=== PATIENT | female | born 1965 | race Caucasian/White ===

== ENCOUNTER 2016-08-10 16:49 | Inpatient (IN) | payer SELFPAY ==
[~2016-08-10] VITALS: Ht 165.1 cm; Wt 106.6 kg
[2016-08-10] MEDS ORDERED: MORPHINE SULFATE 2 MG/ML DISP.SYRIN. IV PRN ×3 (17:45→21:30)
[2016-08-10] MEDS ORDERED: ONDANSETRON PF 4 MG/2 ML VIAL. IV PRN ×3 (17:45→21:30)
[2016-08-10] MEDS ORDERED: MORPHINE SULFATE 4 MG/ML DISP.SYRIN. IV PRN (18:00)
[2016-08-10] MEDS: IV NORMAL SALINE 1000ML BAG 1,000 ML IV SCH (18:01)
[2016-08-10] MEDS: PIPERACILLIN/TAZOBACTAM 3.375 GM in IV NORMAL SALINE 50ML 50 ML IV SCH ×2 (19:03→23:53)
[2016-08-10] MEDS ORDERED: DESFLURANE > 120 MINUTES IH ONE (19:32)
[2016-08-10] MEDS ORDERED: GLYCOPYRROLATE 1 MG/5 ML VIAL. ONE (19:33)
[2016-08-10] MEDS ORDERED: MIDAZOLAM HCL 2 MG/2 ML VIAL. ONE (19:33)
[2016-08-10] MEDS ORDERED: PROPOFOL 20 ML IV ONE (19:33)
[2016-08-10] MEDS ORDERED: ROCURONIUM 50 MG/5 ML VIAL. ONE (19:33)
[2016-08-10] MEDS ORDERED: FENTANYL PF 100 MCG/2 ML VIAL. ONE (19:33)
[2016-08-10] MEDS ORDERED: SUCCINYLCHOLINE 200 MG/10 ML VIAL. ONE (19:33)
[2016-08-10] MEDS ORDERED: NEOSTIGMINE METHYLSULFATE 5 MG/5 ML SYRINGE. ONE (19:33)
[2016-08-10] MEDS ORDERED: ONDANSETRON PF 4 MG/2 ML VIAL. ONE (19:34)
[2016-08-10] MEDS ORDERED: LIDOCAINE 2% 100 MG/5 ML DISP.SYRIN. ONE (19:34)
[2016-08-10] MEDS ORDERED: KETOROLAC 30 MG/ML SYRINGE FOR OR. INJ ONE (19:34)
[2016-08-10] MEDS ORDERED: DEXAMETHASONE SOD PHOS 20 MG/5 ML VIAL. ONE (19:34)
[2016-08-10] MEDS ORDERED: IV RINGERS,LACTATED 1000ML 1,000 ML IV SCH (19:57)
[2016-08-10] MEDS ORDERED: LIDOCAINE 1% 1 ML SYRINGE. ID PRN (20:00)
[2016-08-10] MEDS ORDERED: PROCHLORPERAZINE 10 MG/2 ML VIAL. IV PRN (20:00)
[2016-08-10] MEDS ORDERED: FENTANYL PF 100 MCG/2 ML VIAL. IV PRN (20:00)
[2016-08-10] MEDS ORDERED: HYDROMORPHONE 2 MG/ML VIAL. IV PRN (20:00)
[2016-08-10] MEDS ORDERED: BUPIVACAINE-EPI 0.25%-1:200000 MPF 30 ML VIAL. ONE (20:05)
--- NOTE | 2016-08-10 20:27 | PDOC2 ---
CONSULT Date of Consult Date of Consult DATE: 08/10/16 TIME: 20:22 Reason for Consult Reason for Consult: Abdominal pain Referring Physician Referring Physician: Zack Identification/Chief Complaint Chief Complaint Abdominal pain Source Source: Patient History of Present Illness Reason for Visit: 51 yo fe,gennaro with 2 day history of right lower back pain then today became severe right lower quadrant abdominal pain with nausea. No fevers Past Medical History Cardiovascular: No pertinent hx Pulmonary: No pertinent hx GI: No pertinent hx Heme/Onc: No pertinent hx Hepatobiliary: No pertinent hx Psych: No pertinent hx Musculoskeletal: low back pain Rheumatologic: No pertinent hx Infectious disease: No pertinent hx ENT: No pertinent hx Renal/: Other (uterine fibroids) Endocrine: No pertinent hx Dermatology: No pertinent hx Past Surgical History Past Surgical History: Other (fibroid ablation, cholecystectomy) Family History Family History: No Significant Social History Social History: Parent No ALCOHOL: none Drugs: None Lives: with Family Current Medications Current Medications Current Medications Morphine Sulfate 2 mg PRN Q2HR PRN IV PAIN Last administered on 08/10/16 18:02 ; Start 08/10/16 at 17:45 Morphine Sulfate 4 mg 4 mg PRN Q2HR PRN IV PAIN; Start 08/10/16 at 17:45; Stop 08/10/16 at 17:49; Status DC Sodium Chloride (Iv Sodium Chloride 0.9% 1000ml Bag) 1,000 ml @ 75 mls/hr [id number] IV Last administered on 08/10/16 18:01; Start 08/10/16 at 17:45 Ondansetron HCl (Zofran) 4 mg PRN Q6HRS PRN IV NAUSEA/VOMITING Last administered on 08/10/16 19:30; Start 08/10/16 at 17:45 Morphine Sulfate 4 mg 4 mg PRN Q2HR PRN IV PAIN; Start 08/10/16 at 18:00 Piperacillin Sod/ Tazobactam Sod/ Sodium Chloride (Zosyn/Iv Sodium Chloride 0.9 % 50ml) 50 ml @ 100 mls/hr Q6HRS IV Last administered on 08/10/16 19:03; Start 08/10/16 at 18:15 Desflurane (Suprane) 90 ml STK-MED ONCE IH ; Start 08/10/16 at 19:32; Stop 08/10 at 19:33; Status DC Midazolam HCl (Versed) 2 mg STK-MED ONCE .ROUTE ; Start 08/10/16 at 19:33; Stop 08/10/16 at 19:34; Status DC Fentanyl Citrate (Fentanyl 2ml Vial) 100 mcg STK-MED ONCE .ROUTE ; Start at 19:33; Stop 08/10/16 at 19:34; Status DC Succinylcholine Chloride (Anectine) 200 mg STK-MED ONCE .ROUTE ; Start 08/10/16 at 19:33; Stop 08/10/16 at 19:34; Status DC Glycopyrrolate (Robinul) 1 mg STK-MED ONCE .ROUTE ; Start 08/10/16 at 19:33; Stop 08/10/16 at 19:34; Status DC Neostigmine Methylsulfate 5 mg STK-MED ONCE .ROUTE ; Start 08/10/16 at 19:33; Stop 08/10/16 at 19:34; Status DC Rocuronium [place] 50 mg 50 mg STK-MED ONCE .ROUTE ; Start 08/10/16 at 19:33; Stop 08/10/16 at 19:34; Status DC Propofol (Diprivan) 20 ml @ As Directed STK-MED ONCE IV ; Start 08/10/16 at 19: 33; Stop 08/10/16 at 19:34; Status DC Dexamethasone Sodium Phosphate (Decadron) 20 mg STK-MED ONCE .ROUTE ; Start 05/16 at 19:34; Stop 08/10/16 at 19:35; Status DC Ketorolac Tromethamine (Toradol For Or Only) 30 mg STK-MED ONCE INJ ; Start 05/16 at 19:34; Stop 08/10/16 at 19:35; Status DC Ondansetron HCl (Zofran) 4 mg STK-MED ONCE .ROUTE ; Start 08/10/16 at 19:34; Stop 08/10/16 at 19:35; Status DC Lidocaine HCl 100 mg STK-MED ONCE .ROUTE ; Start 08/10/16 at 19:34; Stop at 19:35; Status DC Ondansetron HCl (Zofran) 4 mg PRN Q6HRS PRN IV Nausea; Start 08/10/16 at 20:00 ; Stop 08/11/16 at 04:00 Fentanyl Citrate (Fentanyl 2ml Vial) 25 mcg PRN Q5MIN PRN IV MILD PAIN; Start 08/10/16 at 20:00; Stop 08/11/16 at 04:00 Fentanyl Citrate (Fentanyl 2ml Vial) 50 mcg PRN Q5MIN PRN IV MODERATE PAIN; Start 08/10/16 at 20:00; Stop 08/11/16 at 04:00 Morphine Sulfate 1 mg 1 mg PRN Q10MIN PRN IV SEVERE PAIN; Start 08/10/16 at 20: 00; Stop 08/11/16 at 04:00 Lactated Ringer's (Iv Lactated Ringers) 1,000 ml @ 30 mls/hr Q24H IV ; Start at 19:57; Stop 08/11/16 at 07:56 Lidocaine HCl 2 ml 1X PRN PRN ID IV START; Start 08/10/16 at 20:00; Stop at 19:59 Hydromorphone HCl (Dilaudid) 0.5 mg PRN Q10MIN PRN IV SEV PAIN,Second choice; Start 08/10/16 at 20:00; Stop 08/11/16 at 19:59 Prochlorperazine Edisylate (Compazine) 5 mg PACU PRN PRN IV NAUSEA; Start 08/10 at 20:00; Stop 08/11/16 at 04:00 Bupivacaine HCl/ Epinephrine Bitart (Sensorcaine-Epi 0.25%-1:304122 Mpf) 30 ml STK-MED ONCE .ROUTE ; Start 08/10/16 at 20:05; Stop 08/10/16 at 20:06; Status DC Active Scripts Active Reported No Known Medications Prior To Admisstion (Info) Each 1 Each Allergies Allergies: Coded Allergies: Quinolones (Verified Allergy, Intermediate, 08/10/16) Sulfa (Sulfonamide Antibiotics) (Verified Allergy, Intermediate, 08/10/16) ofloxacin (Verified Allergy, Intermediate, 08/10/16) ROS Gastrointestinal: Yes Abdominal Pain, Yes Nausea Physical Exam General: Alert, Oriented X3, Cooperative, mild distress HEENT: Atraumatic Lungs: Clear to auscultation, Normal air movement Heart: Regular rate, No murmurs Abdomen: Normal bowel sounds, Soft, Other (TTP RLQ) Extremities: No edema Skin: No significant lesion Neuro: Normal speech Psych/Mental Status: Mental status NL Vitals VITALS Vital Signs Date Time Temp Pulse Resp B/P Pulse Ox O2 Delivery O2 Flow Rate FiO2 08/10/16 20:01 Room Air 08/10/16 19:00 18 Labs Labs WBC 13,[address] shows RLQ inflammation evidence of acute appendicitis without abscess Assessment/Plan Assessment/Plan Acute appendicitis Plan L/S Appendectomy PEARL WILLIAM MD Aug 10, 2016 20:27
[2016-08-10] MEDS ORDERED: PHENYLEPHRINE in 0.9% NACL PF 1 MG/10 ML DISP.SYRIN. IV ONE (20:42)
--- NOTE | 2016-08-10 21:17 | PDOC ---
BRIEF OPERATIVE NOTE Date: Aug 10, 2016 Pre-Op Diagnosis Acute appendicitis Post-Op Diagnosis Same Procedure Performed L/S Appendectomy Surgeon Kenton Anesthesia Type: General Blood Loss 10ml Specimens Obtained Appendectomy Findings As above Complications None PEARL WILLIAM MD Aug 10, 2016 21:17
[2016-08-10] MEDS: IV DEXTROSE 5%-LACT RINGERS 1,000 ML IV SCH (21:30)
[2016-08-10] MEDS ORDERED: 0.9 % SODIUM CHLORIDE 10 ML DISP.SYRIN. IV PRN (21:30)
[2016-08-10] MEDS ORDERED: OXYCODONE/APAP 5/325 TABLET. PO PRN (21:30)
[2016-08-10] MEDS: FENTANYL PF 100 MCG/2 ML VIAL. IV PRN ×2 (21:32→21:37)
[2016-08-10] MEDS: MORPHINE SULFATE 2 MG/ML DISP.SYRIN. IV PRN ×2 (21:42→21:52)
[2016-08-10] MEDS: DIPHENHYDRAMINE HCL 25 MG CAPSULE PO PRN ×2 (22:21→23:53)
[2016-08-10] MEDS: OXYCODONE/APAP 5/325 TABLET. PO PRN (22:22)
[2016-08-10 22:24] VITALS: BP 138/77
[2016-08-10 22:30] VITALS: BP 139/60
[2016-08-10 22:45] VITALS: BP 143/65
[2016-08-10 23:00] VITALS: BP 144/66
--- NOTE | 2016-08-10 23:12 | HP ---
ADMIT DATE: 08/10/2016 CHIEF COMPLAINT: Abdominal pain. HISTORY OF PRESENT ILLNESS: The patient is a pleasant middle-aged female who presented to the ER at [facility] with abdominal pain. She has now been transferred to our facility for consultation with General Surgery. She is going to surgery [facility] for laparoscopic appendectomy. PAST MEDICAL HISTORY: None. ALLERGIES: QUINOLONES, SULFA, AND OFLOXACIN. FAMILY HISTORY: Noncontributory. SOCIAL HISTORY: She does not drink, smoke, or take drugs. MEDICATIONS: Reviewed, please refer to the MRAD. REVIEW OF SYSTEMS: GENERAL: No history of weight change, weakness or fevers. SKIN: No bruising, hair changes or rashes. EYES: No blurred, double or loss of vision. NOSE AND THROAT: No history of nosebleeds, hoarseness or sore throat. HEART: No history of palpitations, chest pain or shortness of breath on exertion. LUNGS: Denies cough, hemoptysis, wheezing or shortness of breath. GASTROINTESTINAL: Complains of abdominal pain. GENITOURINARY: No history of frequency, urgency, hesitancy or nocturia. NEUROLOGIC: Denies history of numbness, tingling, tremor or weakness. PSYCHIATRIC: No history of panic, anxiety or depression. ENDOCRINE: No history of heat or cold intolerance, polyuria or polydipsia. EXTREMITIES: Denies muscle weakness, joint pain, pain on walking or stiffness. PHYSICAL EXAMINATION: VITAL SIGNS: Temperature afebrile, pulse 74, respirations 18, blood pressure 113/90. GENERAL: She is alert, cooperative. Her family is present. HEART: Normal S1, S2. LUNGS: Clear. ABDOMEN: Soft. Decreased bowel sounds, tender in [place] point. ENDOCRINE: No thyromegaly. LYMPHATICS: No cervical nodes. HEMATOPOIETIC: No bruising. LABORATORY DATA: Pending. ASSESSMENT AND PLAN: Acute appendicitis. The patient has been admitted, was started on IV antibiotics, IV fluids, p.r.n. narcotics. Consult General Surgery. She is going to surgery [facility]. PO JARVIS DO DR: NUHA/khushboo JOB#: [id number] / [id number]
[2016-08-10 23:30] VITALS: BP 145/70
[2016-08-10] MEDS: KETOROLAC 15 MG/ML VIAL. IV SCH (23:53)
[2016-08-11] VITALS (9 sets, daily range): BP systolic 113–152; BP diastolic 64–84
--- NOTE | 2016-08-11 01:54 | OP ---
DATE OF SURGERY: 08/10/2016 PREOPERATIVE DIAGNOSIS: Acute appendicitis. POSTOPERATIVE DIAGNOSIS: Acute appendicitis. PROCEDURE: Laparoscopic appendectomy. SURGEON: Sincere William MD INDICATIONS: The patient is a 51-year-old female was admitted to the hospital with right lower quadrant abdominal pain for the last 24 hours. Two days prior, she has been having right lower back pain. She was noticed to have a mild leukocytosis, nausea and a CT scan showing signs consistent with acute appendicitis, no abscess or free fluid. PROCEDURE: Laparoscopic appendectomy was explained to the patient in detail. Risks, benefits were also discussed including bleeding, infection, injury to intra-abdominal contents, possibility of sustaining further open operations. Alternatives of this procedure were also discussed with the patient who seemed to understand and gave verbal and written consent to have the procedure performed. DESCRIPTION OF PROCEDURE: The patient was taken to the operating room and placed in the supine position, general anesthesia was initiated. Once the patient was asleep and intubated, her abdomen was prepped and draped in usual sterile fashion using ChloraPrep. An area just above the umbilicus injected 0.25% Marcaine with epinephrine. Incision was made with an 11 blade scalpel and a Veress needle was placed within the abdomen. Pneumoperitoneum was achieved. Once this was complete, a 12 mm port was placed and a 5 mm camera was placed within the abdomen. Abdomen was inspected. No other abnormalities were noted. It was noted there was some inflammation in the right lower quadrant next to the cecum. At this point, two 5 mm ports were then placed, one in the right upper abdomen and one low in the midline pelvis under direct visualization. The camera was moved to the pelvic port. This allowed access to the cecum. The base of the appendix was visualized. The appendix was retrocecal and densely adherent to some omentum at the tip. After being able to propagate a window at the base of the appendix, an Endo-CYNDI stapler was used to staple and transect the base of the appendix. Dissection was carried down trying to free the appendix up from its adherent tissues. Once this was completed enough to see the mesoappendix clearly, an Endo-CYNDI was used to staple and transect the mesoappendix freeing up the appendix to be placed in EndoCatch bag and removed from the umbilicus. The right lower quadrant and pelvis were irrigated and suctioned dry. Hemostasis seemed to be appropriate and the pneumoperitoneum was reduced. All ports were removed. Fascial defect of the umbilicus closed with [id number] 0 Vicryl suture and the skin was reapproximated at all port sites with 4-0 subcuticular Monocryl. Mastisol, Steri-Strips, 4 x 4's and Medipore tape were applied as dressings. The patient was awakened, extubated in the operating room, taken to recovery in stable condition. All sponge, instrument counts listed as correct. Estimated blood loss 10 mL. SINCERE WILLIAM MD DR: MURRAY/khushboo JOB#: [id number] / [id number]
[2016-08-11] MEDS: KETOROLAC 15 MG/ML VIAL. IV SCH ×3 (06:00→18:38)
[2016-08-11] MEDS: PIPERACILLIN/TAZOBACTAM 3.375 GM in IV NORMAL SALINE 50ML 50 ML IV SCH ×3 (06:13→18:38)
[2016-08-11] MEDS: DIPHENHYDRAMINE HCL 25 MG CAPSULE PO PRN ×2 (06:15→21:44)
[2016-08-11] MEDS: IV NORMAL SALINE 1000ML BAG 1,000 ML IV SCH ×2 (07:05→19:40)
[2016-08-11 09:17] LABS: BASO # 0.1 x10^3/uL (0.0-0.2); BASO % 0 % (0-3); EOS % 0 % (0-3); HEMATOCRIT 38.1 % (36.0-47.0); HEMOGLOBIN 12.4 g/dL (12.0-15.5); LYMPH # 1.5 x10^3/uL (1.0-4.8); LYMPH % 10 % (24-48); MEAN CORPUSCULAR HEMOGLOBIN 28 pg (25-35); MEAN CORPUSCULAR HGB CONC 33 g/dL (31-37); MEAN CORPUSCULAR VOLUME 84 fL (79-100); MONO % 4 % (0-9); NEUT % 86 % (31-73); PLATELET COUNT 278 x10^3/uL (140-400); RED BLOOD COUNT 4.52 x10^6/uL (3.50-5.40); RED CELL DISTRIBUTION WIDTH 14.7 % (11.5-14.5); WHITE BLOOD COUNT 15.2 x10^3/uL (4.0-11.0)
--- NOTE | 2016-08-11 09:41 | PDOC ---
SURGICAL PROGRESS NOTE Subjective Doing well, tolerating diet. Vital Signs Vital Signs Date Time Temp Pulse Resp B/P Pulse Ox O2 Delivery O2 Flow Rate FiO2 08/11/16 07:20 Room Air 08/11/16 07:00 97.9 81 20 126/70 93 97.9 08/11/16 02:00 2.0 I&O Intake and Output 08/11/16 07:00 Intake Total 520 ml Output Total 300 ml Balance 220 ml Intake Oral 220 ml IV Total 300 ml Output Urine Total 300 ml PATIENT HAS A GREER: No General: Alert, Oriented X3, Cooperative, mild distress Abdomen: Normal bowel sounds, Soft, Other (Mild inscional tenderness) Labs Laboratory Tests Test 08/11/16 08:50 White Blood Count 15.2x10^3/uL (4.0-11.0) Red Blood Count 4.52x10^6/uL (3.50-5.40) Hemoglobin 12.4g/dL (12.0-15.5) Hematocrit 38.1% (36.0-47.0) Mean Corpuscular Volume 84fL (79-100) Mean Corpuscular Hemoglobin 28pg (25-35) Mean Corpuscular Hemoglobin Concent 33g/dL (31-37) Red Cell Distribution Width 14.7% (11.5-14.5) Platelet Count 278x10^3/uL (140-400) Neutrophils (%) (Auto) 86% (31-73) Lymphocytes (%) (Auto) 10% (24-48) Monocytes (%) (Auto) 4% (0-9) Eosinophils (%) (Auto) 0% (0-3) Basophils (%) (Auto) 0% (0-3) Neutrophils # (Auto) 13.0x10^3uL (1.8-7.7) Lymphocytes # (Auto) 1.5x10^3/uL (1.0-4.8) Monocytes # (Auto) 0.6x10^3/uL (0.0-1.1) Eosinophils # (Auto) 0.0x10^3/uL (0.0-0.7) Basophils # (Auto) 0.1x10^3/uL (0.0-0.2) Laboratory Tests Test 08/11/16 08:50 White Blood Count 15.2x10^3/uL (4.0-11.0) Red Blood Count 4.52x10^6/uL (3.50-5.40) Hemoglobin 12.4g/dL (12.0-15.5) Hematocrit 38.1% (36.0-47.0) Mean Corpuscular Volume 84fL (79-100) Mean Corpuscular Hemoglobin 28pg (25-35) Mean Corpuscular Hemoglobin Concent 33g/dL (31-37) Red Cell Distribution Width 14.7% (11.5-14.5) Platelet Count 278x10^3/uL (140-400) Neutrophils (%) (Auto) 86% (31-73) Lymphocytes (%) (Auto) 10% (24-48) Monocytes (%) (Auto) 4% (0-9) Eosinophils (%) (Auto) 0% (0-3) Basophils (%) (Auto) 0% (0-3) Neutrophils # (Auto) 13.0x10^3uL (1.8-7.7) Lymphocytes # (Auto) 1.5x10^3/uL (1.0-4.8) Monocytes # (Auto) 0.6x10^3/uL (0.0-1.1) Eosinophils # (Auto) 0.0x10^3/uL (0.0-0.7) Basophils # (Auto) 0.1x10^3/uL (0.0-0.2) Problem List Problems Medical Problems: (1) Acute appendicitis Status: Acute Assessment/Plan s/p l/s appy, doing well WBC 15,000 Continue IV abx today, hope to send home in AM Patient may shower Problems: PEARL WILLIAM MD Aug 11, 2016 09:41
[2016-08-11 10:42] LABS: PLT ESTIMATE ADEQUATE (ADEQUATE)
[2016-08-11] MEDS: IV DEXTROSE 5%-LACT RINGERS 1,000 ML IV SCH (10:50)
--- NOTE | 2016-08-11 12:10 | PDOC ---
PROGRESS NOTES Chief Complaint Chief Complaint cc:abdominal pain A/P L/S Appendectomy elevated WBC plan abx monitor wbc pain control GS following labs reviewed, Vitals Vitals Vital Signs Date Time Temp Pulse Resp B/P Pulse Ox O2 Delivery O2 Flow Rate FiO2 08/11/16 11:00 97.4 91 20 129/66 93 Room Air 97.4 08/11/16 02:00 2.0 Physical Exam General: Alert, Oriented X3, Cooperative, mild distress Heart: Regular rate, Normal S1, Normal S2, No murmurs Lungs: Clear Abdomen: Normal bowel sounds, Soft, Other (Mild inscional tenderness) Extremities: No edema Skin: No significant lesion Labs LABS Laboratory Tests Test 08/11/16 08:50 White Blood Count 15.2x10^3/uL (4.0-11.0) Red Blood Count 4.52x10^6/uL (3.50-5.40) Hemoglobin 12.4g/dL (12.0-15.5) Hematocrit 38.1% (36.0-47.0) Mean Corpuscular Volume 84fL (79-100) Mean Corpuscular Hemoglobin 28pg (25-35) Mean Corpuscular Hemoglobin Concent 33g/dL (31-37) Red Cell Distribution Width 14.7% (11.5-14.5) Platelet Count 278x10^3/uL (140-400) Neutrophils (%) (Auto) 86% (31-73) Lymphocytes (%) (Auto) 10% (24-48) Monocytes (%) (Auto) 4% (0-9) Eosinophils (%) (Auto) 0% (0-3) Basophils (%) (Auto) 0% (0-3) Neutrophils # (Auto) 13.0x10^3uL (1.8-7.7) Lymphocytes # (Auto) 1.5x10^3/uL (1.0-4.8) Monocytes # (Auto) 0.6x10^3/uL (0.0-1.1) Eosinophils # (Auto) 0.0x10^3/uL (0.0-0.7) Basophils # (Auto) 0.1x10^3/uL (0.0-0.2) Segmented Neutrophils % 84% (35-66) Band Neutrophils % 2% (0-9) Lymphocytes % 14% (24-48) Platelet Estimate Adequate (ADEQUATE) Assessment and Plan Assessmemt and Plan Problems Medical Problems: (1) Acute appendicitis Status: Acute Problems: Comment Review of Relevant I have reviewed the following items amanda (where applicable) has been applied. Labs Laboratory Tests Test 08/11/16 08:50 White Blood Count 15.2x10^3/uL (4.0-11.0) Red Blood Count 4.52x10^6/uL (3.50-5.40) Hemoglobin 12.4g/dL (12.0-15.5) Hematocrit 38.1% (36.0-47.0) Mean Corpuscular Volume 84fL (79-100) Mean Corpuscular Hemoglobin 28pg (25-35) Mean Corpuscular Hemoglobin Concent 33g/dL (31-37) Red Cell Distribution Width 14.7% (11.5-14.5) Platelet Count 278x10^3/uL (140-400) Neutrophils (%) (Auto) 86% (31-73) Lymphocytes (%) (Auto) 10% (24-48) Monocytes (%) (Auto) 4% (0-9) Eosinophils (%) (Auto) 0% (0-3) Basophils (%) (Auto) 0% (0-3) Neutrophils # (Auto) 13.0x10^3uL (1.8-7.7) Lymphocytes # (Auto) 1.5x10^3/uL (1.0-4.8) Monocytes # (Auto) 0.6x10^3/uL (0.0-1.1) Eosinophils # (Auto) 0.0x10^3/uL (0.0-0.7) Basophils # (Auto) 0.1x10^3/uL (0.0-0.2) Segmented Neutrophils % 84% (35-66) Band Neutrophils % 2% (0-9) Lymphocytes % 14% (24-48) Platelet Estimate Adequate (ADEQUATE) Laboratory Tests Test 08/11/16 08:50 White Blood Count 15.2x10^3/uL (4.0-11.0) Red Blood Count 4.52x10^6/uL (3.50-5.40) Hemoglobin 12.4g/dL (12.0-15.5) Hematocrit 38.1% (36.0-47.0) Mean Corpuscular Volume 84fL (79-100) Mean Corpuscular Hemoglobin 28pg (25-35) Mean Corpuscular Hemoglobin Concent 33g/dL (31-37) Red Cell Distribution Width 14.7% (11.5-14.5) Platelet Count 278x10^3/uL (140-400) Neutrophils (%) (Auto) 86% (31-73) Lymphocytes (%) (Auto) 10% (24-48) Monocytes (%) (Auto) 4% (0-9) Eosinophils (%) (Auto) 0% (0-3) Basophils (%) (Auto) 0% (0-3) Neutrophils # (Auto) 13.0x10^3uL (1.8-7.7) Lymphocytes # (Auto) 1.5x10^3/uL (1.0-4.8) Monocytes # (Auto) 0.6x10^3/uL (0.0-1.1) Eosinophils # (Auto) 0.0x10^3/uL (0.0-0.7) Basophils # (Auto) 0.1x10^3/uL (0.0-0.2) Segmented Neutrophils % 84% (35-66) Band Neutrophils % 2% (0-9) Lymphocytes % 14% (24-48) Platelet Estimate Adequate (ADEQUATE) Medications Current Medications Morphine Sulfate 2 mg PRN Q2HR PRN IV PAIN Last administered on 08/10/16 18:02 ; Start 08/10/16 at 17:45 Morphine Sulfate 4 mg 4 mg PRN Q2HR PRN IV PAIN; Start 08/10/16 at 17:45; Stop 08/10/16 at 17:49; Status DC Sodium Chloride (Iv Sodium Chloride 0.9% 1000ml Bag) 1,000 ml @ 75 mls/hr [id number] IV Last administered on 08/10/16 18:01; Start 08/10/16 at 17:45 Ondansetron HCl (Zofran) 4 mg PRN Q6HRS PRN IV NAUSEA/VOMITING; Start 08/10/16 at 17:45 Morphine Sulfate 4 mg 4 mg PRN Q2HR PRN IV PAIN; Start 08/10/16 at 18:00 Piperacillin Sod/ Tazobactam Sod/ Sodium Chloride (Zosyn/Iv Sodium Chloride 0.9 % 50ml) 50 ml @ 100 mls/hr Q6HRS IV Last administered on 08/11/16t 11:29; Start 08/10/16 at 18:15 Desflurane (Suprane) 90 ml STK-MED ONCE IH ; Start 08/10/16 at 19:32; Stop 08/10 at 19:33; Status DC Midazolam HCl (Versed) 2 mg STK-MED ONCE .ROUTE ; Start 08/10/16 at 19:33; Stop 08/10/16 at 19:34; Status DC Fentanyl Citrate (Fentanyl 2ml Vial) 100 mcg STK-MED ONCE .ROUTE ; Start at 19:33; Stop 08/10/16 at 19:34; Status DC Succinylcholine Chloride (Anectine) 200 mg STK-MED ONCE .ROUTE ; Start 08/10/16 at 19:33; Stop 08/10/16 at 19:34; Status DC Glycopyrrolate (Robinul) 1 mg STK-MED ONCE .ROUTE ; Start 08/10/16 at 19:33; Stop 08/10/16 at 19:34; Status DC Neostigmine Methylsulfate 5 mg STK-MED ONCE .ROUTE ; Start 08/10/16 at 19:33; Stop 08/10/16 at 19:34; Status DC Rocuronium [place] 50 mg 50 mg STK-MED ONCE .ROUTE ; Start 08/10/16 at 19:33; Stop 08/10/16 at 19:34; Status DC Propofol (Diprivan) 20 ml @ As Directed STK-MED ONCE IV ; Start 08/10/16 at 19: 33; Stop 08/10/16 at 19:34; Status DC Dexamethasone Sodium Phosphate (Decadron) 20 mg STK-MED ONCE .ROUTE ; Start 05/16 at 19:34; Stop 08/10/16 at 19:35; Status DC Ketorolac Tromethamine (Toradol For Or Only) 30 mg STK-MED ONCE INJ ; Start 05/16 at 19:34; Stop 08/10/16 at 19:35; Status DC Ondansetron HCl (Zofran) 4 mg STK-MED ONCE .ROUTE ; Start 08/10/16 at 19:34; Stop 08/10/16 at 19:35; Status DC Lidocaine HCl 100 mg STK-MED ONCE .ROUTE ; Start 08/10/16 at 19:34; Stop at 19:35; Status DC Ondansetron HCl (Zofran) 4 mg PRN Q6HRS PRN IV Nausea; Start 08/10/16 at 20:00 ; Stop 08/11/16 at 04:00; Status DC Fentanyl Citrate (Fentanyl 2ml Vial) 25 mcg PRN Q5MIN PRN IV MILD PAIN; Start 08/10/16 at 20:00; Stop 08/11/16 at 04:00; Status DC Fentanyl Citrate (Fentanyl 2ml Vial) 50 mcg PRN Q5MIN PRN IV MODERATE PAIN Last administered on 08/10/16 21:37; Start 08/10/16 at 20:00; Stop 08/11/16 at 04:00; Status DC Morphine Sulfate 1 mg 1 mg PRN Q10MIN PRN IV SEVERE PAIN Last administered on 21:52; Start 08/10/16 at 20:00; Stop 08/11/16 at 04:00; Status DC Lactated Ringer's (Iv Lactated Ringers) 1,000 ml @ 30 mls/hr Q24H IV ; Start at 19:57; Stop 08/11/16 at 07:56; Status DC Lidocaine HCl 2 ml 1X PRN PRN ID IV START; Start 08/10/16 at 20:00; Stop at 19:59 Hydromorphone HCl (Dilaudid) 0.5 mg PRN Q10MIN PRN IV SEV PAIN,Second choice; Start 08/10/16 at 20:00; Stop 08/11/16 at 19:59 Prochlorperazine Edisylate (Compazine) 5 mg PACU PRN PRN IV NAUSEA; Start 08/10 at 20:00; Stop 08/11/16 at 04:00; Status DC Bupivacaine HCl/ Epinephrine Bitart (Sensorcaine-Epi 0.25%-1:118187 Mpf) 30 ml STK-MED ONCE .ROUTE Last administered on 08/10/16 20:36; Start 08/10/16 at 20: 05; Stop 08/10/16 at 20:06; Status DC Phenylephrine HCl 1 mg STK-MED ONCE IV ; Start 08/10/16 at 20:42; Stop 08/10/16 at 20:43; Status DC Sodium Chloride (Normal Saline Flush) 3 ml QSHIFT PRN IV AFTER MEDS AND BLOOD DRAWS; Start 08/10/16 at 21:30 Morphine Sulfate 2 mg PRN Q3HRS PRN IV PAIN; Start 08/10/16 at 21:30 Oxycodone/ Acetaminophen (Percocet 5/325) 1 tab PRN Q4HRS PRN PO MILD PAIN, 1ST CHOICE Last administered on 08/10/16 22:22; Start 08/10/16 at 21:30 Oxycodone/ Acetaminophen (Percocet 5/325) 2 tab PRN Q4HRS PRN PO MODERATE PAIN , SEVERE PAIN Last administered on 08/11/16 03:25; Start 08/10/16 at 21:30 Ketorolac Tromethamine (Toradol) 15 mg Q6HRS IV Last administered on 08/11/16 11:29; Start 08/11/16 at 00:00; Stop 08/12/16 at 23:59 Ondansetron HCl 4 mg 4 mg PRN Q6HRS PRN IV NAUSEA, 1ST CHOICE; Start 08/10/16 at 21:30 Dextrose/Lactated Ringer's (Iv D5%-Lr) 1,000 ml @ 75 mls/hr [id number] IV ; Start 08/10/16 at 21:30 Diphenhydramine HCl (Benadryl) 25 mg PRN Q6HRS PRN PO ITCHING Last administered on 08/11/16 06:15; Start 08/10/16 at 22:15 Active Scripts Active Reported No Known Medications Prior To Admisstion (Info) Each 1 Each Vitals/I & O Vital Sign - Last 24 Hours 08/10/16 08/10/16 08/10/16 08/10/16 16:25 18:02 19:00 20:01 Resp 18 O2 Delivery Room Air Room Air Room Air Room Air 08/10/16 08/10/16 08/10/16 08/10/16 21:18 21:32 21:33 21:33 Temp 102.0 102.0 Pulse 105 99 Resp 18 16 B/P 145/70 127/65 Pulse Ox 93 92 94 O2 Delivery Simple Mask Room Air Nasal Cannula Mask O2 Flow Rate 10 2 10 08/10/16 08/10/16 08/10/16 08/10/16 21:37 21:42 21:48 21:52 Temp 98.6 98.6 Pulse 93 Resp 16 B/P 138/71 Pulse Ox 94 94 96 96 O2 Delivery Nasal Cannula Nasal Cannula Nasal Cannula Nasal Cannula O2 Flow Rate 2.0 2.0 2 2.0 08/10/16 08/10/16 08/10/16 08/10/16 21:55 22:22 22:24 22:24 Temp 98.5 98.5 Pulse 93 Resp 18 18 B/P 138/77 Pulse Ox 92 O2 Delivery Nasal Cannula Nasal Cannula O2 Flow Rate 2 2.0 08/10/16 08/10/16 08/10/16 08/10/16 22:30 22:30 22:35 22:45 Temp 98.5 98.7 98.5 98.7 Pulse 105 102 Resp 18 16 18 B/P 139/60 143/65 Pulse Ox 92 O2 Delivery Nasal Cannula Nasal Cannula Nasal Cannula O2 Flow Rate 2.0 2.0 2.0 08/10/16 08/10/16 08/10/16 08/10/16 22:45 23:00 23:00 23:30 Temp 98.7 98.7 Pulse 101 B/P 144/66 Pulse Ox 92 93 93 O2 Delivery Nasal Cannula O2 Flow Rate 2.0 08/10/16 08/11/16 08/11/16 08/11/16 23:30 00:00 00:00 01:00 Temp 98.7 98.7 Pulse 99 101 105 Resp 18 18 18 B/P 145/70 142/66 130/64 Pulse Ox 92 94 O2 Delivery BiPAP/CPAP Nasal Cannula O2 Flow Rate 2.0 2.0 2.0 08/11/16 08/11/16 08/11/16 08/11/16 02:00 02:00 03:00 03:25 Temp 98.7 98.7 Pulse 105 107 Resp 18 18 18 B/P 113/68 116/65 Pulse Ox 93 94 O2 Delivery Nasal Cannula Room Air Room Air O2 Flow Rate 2.0 08/11/16 08/11/16 08/11/16 08/11/16 06:02 07:00 07:20 11:00 Temp 97.9 97.4 97.9 97.4 Pulse 81 91 Resp 16 20 20 B/P 126/70 129/66 Pulse Ox 93 93 O2 Delivery Room Air Room Air Room Air Room Air Intake and Output 08/10/16 08/10/16 08/11/16 15:00 23:00 07:00 Intake Total 420 ml 100 ml Output Total 300 ml Balance 420 ml -200 ml LEANDER RANGEL MD Aug 11, 2016 12:10
[2016-08-11] MEDS: OXYCODONE/APAP 5/325 TABLET. PO PRN (21:47)
[2016-08-12] MEDS: IV DEXTROSE 5%-LACT RINGERS 1,000 ML IV SCH (00:10)
[2016-08-12] MEDS: KETOROLAC 15 MG/ML VIAL. IV SCH ×2 (00:23→06:02)
[2016-08-12] MEDS: PIPERACILLIN/TAZOBACTAM 3.375 GM in IV NORMAL SALINE 50ML 50 ML IV SCH ×2 (00:24→06:00)
[2016-08-12 03:30] VITALS: BP 137/73
[2016-08-12 05:09] LABS: BASO # 0.1 x10^3/uL (0.0-0.2); BASO % 1 % (0-3); EOS % 1 % (0-3); HEMATOCRIT 35.6 % (36.0-47.0); HEMOGLOBIN 11.7 g/dL (12.0-15.5); LYMPH # 3.6 x10^3/uL (1.0-4.8); LYMPH % 29 % (24-48); MEAN CORPUSCULAR HEMOGLOBIN 28 pg (25-35); MEAN CORPUSCULAR HGB CONC 33 g/dL (31-37); MEAN CORPUSCULAR VOLUME 86 fL (79-100); MONO % 8 % (0-9); NEUT % 61 % (31-73); PLATELET COUNT 251 x10^3/uL (140-400); RED BLOOD COUNT 4.16 x10^6/uL (3.50-5.40); RED CELL DISTRIBUTION WIDTH 14.3 % (11.5-14.5); WHITE BLOOD COUNT 12.3 x10^3/uL (4.0-11.0)
[2016-08-12 07:00] VITALS: BP 161/76
[2016-08-12] MEDS: OXYCODONE/APAP 5/325 TABLET. PO PRN (07:30)
--- NOTE | 2016-08-12 08:36 | PDOC ---
PROGRESS NOTES Chief Complaint Chief Complaint Abd Pain Appendicitis ASSESSMENT ANS PLAN: 1. Appendicitis: s/p quentin.y on 08/[address] Fung. 2. Leukocytosis: 2/2 inflammation and surg. improving 3. Dispo: prob home today if cleared by surg Vitals Vitals Vital Signs Date Time Temp Pulse Resp B/P Pulse Ox O2 Delivery O2 Flow Rate FiO2 08/12/16 07:30 Room Air 08/12/16 03:30 97.7 83 18 137/73 93 97.7 Physical Exam General: Alert, Oriented X3, Cooperative, mild distress Heart: Regular rate, Normal S1, Normal S2, No murmurs Lungs: Clear Abdomen: Normal bowel sounds, Soft, Other (Mild inscional tenderness, RLQ) Extremities: No edema Skin: No significant lesion Labs LABS Laboratory Tests Test 08/11/16 08:50 08/12/16 04:35 White Blood Count 15.2x10^3/uL (4.0-11.0) 12.3x10^3/uL (4.0-11.0) Red Blood Count 4.52x10^6/uL (3.50-5.40) 4.16x10^6/uL (3.50-5.40) Hemoglobin 12.4g/dL (12.0-15.5) 11.7g/dL (12.0-15.5) Hematocrit 38.1% (36.0-47.0) 35.6% (36.0-47.0) Mean Corpuscular Volume 84fL (79-100) 86fL (79-100) Mean Corpuscular Hemoglobin 28pg (25-35) 28pg (25-35) Mean Corpuscular Hemoglobin Concent 33g/dL (31-37) 33g/dL (31-37) Red Cell Distribution Width 14.7% (11.5-14.5) 14.3% (11.5-14.5) Platelet Count 278x10^3/uL (140-400) 251x10^3/uL (140-400) Neutrophils (%) (Auto) 86% (31-73) 61% (31-73) Lymphocytes (%) (Auto) 10% (24-48) 29% (24-48) Monocytes (%) (Auto) 4% (0-9) 8% (0-9) Eosinophils (%) (Auto) 0% (0-3) 1% (0-3) Basophils (%) (Auto) 0% (0-3) 1% (0-3) Neutrophils # (Auto) 13.0x10^3uL (1.8-7.7) 7.5x10^3uL (1.8-7.7) Lymphocytes # (Auto) 1.5x10^3/uL (1.0-4.8) 3.6x10^3/uL (1.0-4.8) Monocytes # (Auto) 0.6x10^3/uL (0.0-1.1) 1.0x10^3/uL (0.0-1.1) Eosinophils # (Auto) 0.0x10^3/uL (0.0-0.7) 0.1x10^3/uL (0.0-0.7) Basophils # (Auto) 0.1x10^3/uL (0.0-0.2) 0.1x10^3/uL (0.0-0.2) Segmented Neutrophils % 84% (35-66) Band Neutrophils % 2% (0-9) Lymphocytes % 14% (24-48) Platelet Estimate Adequate (ADEQUATE) Review of Systems Review of Systems feels ok today. pain adequately controlled. no new issues ROXANNE CORNEJO MD Aug 12, 2016 08:36
--- NOTE | 2016-08-12 08:38 | PDOC ---
BASSEM WHITTINGTON LEATHER SKINNER 08/12/16 0838: SURGICAL PROGRESS NOTE Subjective tolerating diet minimal pain + flatus Vital Signs Vital Signs Date Time Temp Pulse Resp B/P Pulse Ox O2 Delivery O2 Flow Rate FiO2 08/12/16 07:30 Room Air 08/12/16 03:30 97.7 83 18 137/73 93 97.7 I&O Intake and Output 08/12/16 07:00 Intake Total 600 ml Balance 600 ml Intake Oral 550 ml IV Total 50 ml # Voids 5 General: Alert, Oriented X3, Cooperative, No acute distress Abdomen: Soft, Other (lap sites c/d/i, no erythema ) Labs Laboratory Tests Test 08/11/16 08:50 08/12/16 04:35 White Blood Count 15.2x10^3/uL (4.0-11.0) 12.3x10^3/uL (4.0-11.0) Red Blood Count 4.52x10^6/uL (3.50-5.40) 4.16x10^6/uL (3.50-5.40) Hemoglobin 12.4g/dL (12.0-15.5) 11.7g/dL (12.0-15.5) Hematocrit 38.1% (36.0-47.0) 35.6% (36.0-47.0) Mean Corpuscular Volume 84fL (79-100) 86fL (79-100) Mean Corpuscular Hemoglobin 28pg (25-35) 28pg (25-35) Mean Corpuscular Hemoglobin Concent 33g/dL (31-37) 33g/dL (31-37) Red Cell Distribution Width 14.7% (11.5-14.5) 14.3% (11.5-14.5) Platelet Count 278x10^3/uL (140-400) 251x10^3/uL (140-400) Neutrophils (%) (Auto) 86% (31-73) 61% (31-73) Lymphocytes (%) (Auto) 10% (24-48) 29% (24-48) Monocytes (%) (Auto) 4% (0-9) 8% (0-9) Eosinophils (%) (Auto) 0% (0-3) 1% (0-3) Basophils (%) (Auto) 0% (0-3) 1% (0-3) Neutrophils # (Auto) 13.0x10^3uL (1.8-7.7) 7.5x10^3uL (1.8-7.7) Lymphocytes # (Auto) 1.5x10^3/uL (1.0-4.8) 3.6x10^3/uL (1.0-4.8) Monocytes # (Auto) 0.6x10^3/uL (0.0-1.1) 1.0x10^3/uL (0.0-1.1) Eosinophils # (Auto) 0.0x10^3/uL (0.0-0.7) 0.1x10^3/uL (0.0-0.7) Basophils # (Auto) 0.1x10^3/uL (0.0-0.2) 0.1x10^3/uL (0.0-0.2) Segmented Neutrophils % 84% (35-66) Band Neutrophils % 2% (0-9) Lymphocytes % 14% (24-48) Platelet Estimate Adequate (ADEQUATE) Laboratory Tests Test 08/11/16 08:50 08/12/16 04:35 White Blood Count 15.2x10^3/uL (4.0-11.0) 12.3x10^3/uL (4.0-11.0) Red Blood Count 4.52x10^6/uL (3.50-5.40) 4.16x10^6/uL (3.50-5.40) Hemoglobin 12.4g/dL (12.0-15.5) 11.7g/dL (12.0-15.5) Hematocrit 38.1% (36.0-47.0) 35.6% (36.0-47.0) Mean Corpuscular Volume 84fL (79-100) 86fL (79-100) Mean Corpuscular Hemoglobin 28pg (25-35) 28pg (25-35) Mean Corpuscular Hemoglobin Concent 33g/dL (31-37) 33g/dL (31-37) Red Cell Distribution Width 14.7% (11.5-14.5) 14.3% (11.5-14.5) Platelet Count 278x10^3/uL (140-400) 251x10^3/uL (140-400) Neutrophils (%) (Auto) 86% (31-73) 61% (31-73) Lymphocytes (%) (Auto) 10% (24-48) 29% (24-48) Monocytes (%) (Auto) 4% (0-9) 8% (0-9) Eosinophils (%) (Auto) 0% (0-3) 1% (0-3) Basophils (%) (Auto) 0% (0-3) 1% (0-3) Neutrophils # (Auto) 13.0x10^3uL (1.8-7.7) 7.5x10^3uL (1.8-7.7) Lymphocytes # (Auto) 1.5x10^3/uL (1.0-4.8) 3.6x10^3/uL (1.0-4.8) Monocytes # (Auto) 0.6x10^3/uL (0.0-1.1) 1.0x10^3/uL (0.0-1.1) Eosinophils # (Auto) 0.0x10^3/uL (0.0-0.7) 0.1x10^3/uL (0.0-0.7) Basophils # (Auto) 0.1x10^3/uL (0.0-0.2) 0.1x10^3/uL (0.0-0.2) Segmented Neutrophils % 84% (35-66) Band Neutrophils % 2% (0-9) Lymphocytes % 14% (24-48) Platelet Estimate Adequate (ADEQUATE) Problem List Problems Medical Problems: (1) Acute appendicitis Status: Acute Assessment/Plan s/p lap appy, afebrile, wbc 12 ok to dc home FU 2 weeks Problems: PEARL WILLIAM MD 08/12/16 0953: SURGICAL PROGRESS NOTE Assessment/Plan Agree with Gema's assessment and plan. Problems: BASSEM WHITTINGTON LEATHER SKINNER Aug 12, 2016 08:38 PEARL WILLIMA MD Aug 12, 2016 09:53
[2016-08-12] MEDS: IV NORMAL SALINE 1000ML BAG 1,000 ML IV SCH (09:45)
[2016-08-12] MEDS ORDERED: OXYC1TAB7 PO (10:51)
[2016-08-12 11:00] VITALS: BP 165/79
--- NOTE | 2016-08-13 17:17 | PATHOLOGY ---
PATHOLOGY REPORT * * * * * * * * FINAL DIAGNOSIS: Appendix, laparoscopic appendectomy: - Acute appendicitis. - Fibrous obliteration of distal appendiceal lumen. - Serosal mesothelial inclusion cyst of distal appendiceal tip. COMMENT: There is no evidence of rupture. There is no evidence of malignancy. (JPM:csd; d/t: 08/13/2016) REPORT ELECTRONICALLY SIGNED BY: Cody Sales M.D. DATE/TIME: 08/13/2016 17:16 * * * * * * * * GROSS PATHOLOGY: Received in formalin labeled "Janie Gomes and appendix," is an appendix measuring 6.4 cm in length and 0.7 cm in diameter with an abundant amount of attached mesoappendix. The serosal surface is pink-wagner, slightly hemorrhagic, and displays multiple adhesions. Sectioning reveals a 0.2 cm in diameter lumen. The mucosa is pink-wagner and grossly unremarkable. The wall is uniform and measures 0.2 cm in thickness. Jig Inspector sections are submitted as follows: A1 bisected distal tip and proximal resection margin A2-A3 sections from body of appendix (TTL; 08/12/2016) INITIAL CPT CODE(S): 45925 Professional services performed [place] [address] Technical services performed by [facility] at [address] [place] [address], [facility] [address], [place] [address]. SPECIMEN(S) RECEIVED: A.Appendix CLINICAL HISTORY: Appendicitis PATIENT: JANIE GOMES /AGE: 107/11/1965 (Age: 51) PATIENT #: [id number] ALT CASE #: SPECIMEN COLLECTION DATE: 08/10/2016 SPECIMEN RECEIVED DATE: 08/12/2016 [facility] - [address] [place] [address] - PHONE: [phone] * * * END OF REPORT * * *
== END 2016-08-12 12:58 | disposition home or self-care (01) | DRG 854 ==
LOC: 4 NORTH 16:56
PROVIDERS: ADMIT Internal Medicine; ATTEND Internal Medicine
PROC: 5A09357 Assistance with Respiratory Ventilation, Less than 24 Consecutive Hours, Continuous Positive Airway Pressure (ICD-10-PCS; 2016-08-10)
PROC: 0DTJ4ZZ Resection of Appendix, Percutaneous Endoscopic Approach (ICD-10-PCS; principal; 2016-08-10 08:30)
DX: A41.9 Sepsis, unspecified organism (principal); K35.80 Unspecified acute appendicitis; K66.8 Other specified disorders of peritoneum; Z88.1 Allergy status to other antibiotic agents; Z88.2 Allergy status to sulfonamides; Z88.8 Allergy status to other drugs, medicaments and biological substances
CPT/HCPCS: 36415; 85007; 85027; 88304; C1782; J0330; J1100; J1885; J2250; J2270; J2370; J2405; J2543; J2704; J2710; J3010; J3490; J7030; Q0163